=== PATIENT | male | born 1960 | race Hispanic/Latino ===

== ENCOUNTER 2021-09-17 11:53 | Inpatient (IN) | payer BC, OTHER ==
[~2021-09-17] VITALS: Ht 182.9 cm; Wt 79.4 kg
[~2021-09-17 11:53] MED LIST: KEFLEX500 MG PO; LORTAB 7.5-5001 EACH PO; OMEPRAZOLE40 MG PO; ULTRAM 50MG50 MG PO; Z.0.BENICAR20 MG PO
[2021-09-17] MEDS ORDERED: ONDANSETRON HCL INJ 2MG/ML 2ML 2 MG/ML VIAL IV STA (11:59)
[2021-09-17] MEDS ORDERED: Morphine 4mg Syringe 4 MG/ML INJ IV ONE (12:00)
[2021-09-17] MEDS ORDERED: SODIUM CHLORIDE 0.9% 1000ML 1,000 ML IV ONE (12:00)
[2021-09-17 12:16] LABS: BASOPHILS % 0.2 % (0.0-1.0); EOSINOPHILS % 0.1 % (0.0-6.0); HEMATOCRIT 43.8 % (38.2-49.6); HEMOGLOBIN 14.5 g/dL (14.0-18.0); LYMPHOCYTES # (AUTO) 0.5 (1.0-3.2); LYMPHOCYTES % 4.3 % (18.0-39.1); MEAN CORPUSCULAR HEMOGLOBIN 31.2 pg (28-32); MEAN CORPUSCULAR HGB CONC 33.1 g/dL (31-35); MEAN CORPUSCULAR VOLUME 94.2 fL (81-99); MONOCYTES # (AUTO) 0.5 (0.2-0.8); MONOCYTES % 3.8 % (4.4-11.3); NEUTROPHILS # (AUTO) 10.7 (2.1-6.9); NEUTROPHILS % 91.3 % (38.7-80.0); PLATELET COUNT 221 x10e3/uL (140-360); RED BLOOD COUNT 4.65 x10e6/uL (4.3-5.7); RED CELL DISTRIBUTION WIDTH 12.6 % (11.7-14.4)
[2021-09-17] MEDS ORDERED: LIDOCAINE HCL 2% LOCAL INJ 5 ML SDV VIAL INJ ONE (12:18)
[2021-09-17] MEDS ORDERED: SUCCINYLCHOLINE CHLORIDE 20 MG/ML 10ML VIAL ONE (12:18)
[2021-09-17] MEDS ORDERED: GLYCOPYRROLATE INJ 0.2 MG/ML VIAL ONE (12:18)
[2021-09-17] MEDS ORDERED: ONDANSETRON HCL INJ 2MG/ML 2ML 2 MG/ML VIAL ONE (12:18)
[2021-09-17] MEDS ORDERED: ROCURONIUM BROMIDE 10 MG/ML 5ML VIAL IV ONE (12:18)
[2021-09-17] MEDS ORDERED: SEVOFLURANE INHAL SOLN 250 ML PEN BTL ONE (12:18)
[2021-09-17] MEDS ORDERED: POVIDONE IODINE 0.05% 0.05 % ML PO ONE (12:18)
[2021-09-17] MEDS ORDERED: NEOSTIGMINE 1 MG/ML 10ML VIAL ONE (12:18)
[2021-09-17] MEDS ORDERED: KETOROLAC TROMETHAMINE 30 MG/ML VIAL ONE (12:18)
[2021-09-17] MEDS ORDERED: PROPOFOL IV EMULSION 10 MG/ML 20 ML VIAL ONE (12:18)
[2021-09-17 12:36] LABS: ALBUMIN 4.6 g/dL (3.5-5.0); ALBUMIN/GLOBULIN RATIO 1.4 (0.8-2.0); ANION GAP 16.1 mmol/L (8-16); CREATININE, SERUM 1.24 mg/dL (0.72-1.25); POTASSIUM 4.1 mmol/L (3.5-5.1)
[2021-09-17] MEDS ORDERED: FENTANYL CITRATE/PF 100MCG/2 ML INJ ONE (12:57)
[2021-09-17] MEDS ORDERED: MIDAZOLAM HCL 2 MG/2 ML VIAL ONE (12:57)
[2021-09-17 13:16] LABS: CLARITY,URINE CLEAR (CLEAR); COLOR,URINE YELLOW (YELLOW); KETONES,URINE TRACE (NEGATIVE); LEUKOCYTE ESTERASE ,URINE NEGATIVE (NEGATIVE); NITRITE,URINE NEGATIVE (NEGATIVE); PROTEIN,URINE DIPSTICK NEGATIVE (NEGATIVE); URINE UROBILINOGEN 0.2 mg/dL (0.2 - 1)
[2021-09-17 13:18] LABS: BACTERIA,URINE FEW /HPF; EPITHELIAL CELLS,URINE FEW /LPF; RBC,URINE 0-5 /HPF (0-5)
[2021-09-17 13:19] LABS: MUCUS,URINE MODERATE (RARE)
[2021-09-17] MEDS ORDERED: SODIUM CHLORIDE 0.9% 50ML 50 ML ONE (13:19)
[2021-09-17] MEDS ORDERED: IOPAMIDOL 370 MG/ML 200 ML INFUS..BTL INJ ONE (13:19)
[2021-09-17] MEDS ORDERED: PIPERACILLIN/TAZOBACTAM 3.375 GM in SODIUM CHLORIDE 0.9% 50ML 50 ML IV ONE (14:30)
[2021-09-17] MEDS ORDERED: Morphine 4mg Syringe 4 MG/ML INJ IV PRN (14:30)
[2021-09-17] MEDS ORDERED: SODIUM CHLORIDE 0.9% 1000ML 1,000 ML IV SCH (14:30)
[2021-09-17] MEDS ORDERED: ONDANSETRON HCL INJ 2MG/ML 2ML 2 MG/ML VIAL IV PRN (14:30)
[2021-09-17 15:07] VITALS: BP 115/83
[2021-09-17] MEDS ORDERED: PRAVASTATIN SOD20 MG PO (15:47)
[2021-09-17] MEDS ORDERED: HYDROCHLOROTHIA25 MG PO (15:47)
[2021-09-17] MEDS ORDERED: SERTRALINE HCL50 MG PO (15:47)
[2021-09-17 16:59] VITALS: BP 115/83
[2021-09-17 18:32] VITALS: BP 105/70
[2021-09-17] MEDS: Cefoxitin 1 GM in SODIUM CHLORIDE 0.9% 50ML 50 ML IV SCH (18:34)
[2021-09-17] MEDS ORDERED: LORAZEPAM INJ 2 MG/ML VIAL IV PRN (20:00)
[2021-09-17] MEDS ORDERED: MULTIVITAMINS- 12 INJECTION 10 ML, FOLIC ACID MDV 1 MG, THIAMINE HCL INJ 100 MG in SODI... IV ONE (20:00)
[2021-09-17] MEDS: PRAVASTATIN 20 MG TAB PO SCH (21:00)
[2021-09-17 21:33] VITALS: BP 144/78
[2021-09-17] MEDS ORDERED: THIAMINE HCL INJ 100 MG/ML 2ML VIAL ONE (21:36)
[2021-09-17] MEDS ORDERED: SODIUM CHLORIDE 0.9% 1000ML 1,000 ML ONE (21:52)
[2021-09-18] VITALS (9 sets, daily range): BP systolic 101–188; BP diastolic 64–94
[2021-09-18] MEDS: Cefoxitin 1 GM in SODIUM CHLORIDE 0.9% 50ML 50 ML IV SCH ×6 (05:25→23:50)
[2021-09-18 06:17] LABS: BASOPHILS % 0.3 % (0.0-1.0); EOSINOPHILS # (AUTO) 0.1 (0.0-0.4); EOSINOPHILS % 0.7 % (0.0-6.0); HEMATOCRIT 36.1 % (38.2-49.6); HEMOGLOBIN 11.7 g/dL (14.0-18.0); LYMPHOCYTES # (AUTO) 0.7 (1.0-3.2); LYMPHOCYTES % 9.3 % (18.0-39.1); MEAN CORPUSCULAR HEMOGLOBIN 31.5 pg (28-32); MEAN CORPUSCULAR HGB CONC 32.4 g/dL (31-35); MEAN CORPUSCULAR VOLUME 97.3 fL (81-99); MONOCYTES # (AUTO) 0.3 (0.2-0.8); MONOCYTES % 4.4 % (4.4-11.3); NEUTROPHILS # (AUTO) 6.1 (2.1-6.9); NEUTROPHILS % 84.9 % (38.7-80.0); PLATELET COUNT 165 x10e3/uL (140-360); RED BLOOD COUNT 3.71 x10e6/uL (4.3-5.7); RED CELL DISTRIBUTION WIDTH 12.6 % (11.7-14.4)
[2021-09-18] MEDS: PANTOPRAZOLE SOD 40 MG TABEC PO SCH (09:51)
[2021-09-18] MEDS: HYDROCHLOROTHIAZIDE 25 MG TAB PO SCH (09:51)
[2021-09-18] MEDS: SERTRALINE HCL 50 MG TAB PO SCH (09:51)
[2021-09-18] MEDS: PRAVASTATIN 20 MG TAB PO SCH (21:47)
[2021-09-19 04:41] VITALS: BP 139/89
[2021-09-19] MEDS: Cefoxitin 1 GM in SODIUM CHLORIDE 0.9% 50ML 50 ML IV SCH ×2 (05:31→12:19)
[2021-09-19 06:59] LABS: BASOPHILS % 0.3 % (0.0-1.0); EOSINOPHILS # (AUTO) 0.1 (0.0-0.4); EOSINOPHILS % 1.7 % (0.0-6.0); HEMATOCRIT 37.7 % (38.2-49.6); HEMOGLOBIN 12.8 g/dL (14.0-18.0); LYMPHOCYTES # (AUTO) 0.6 (1.0-3.2); LYMPHOCYTES % 8.3 % (18.0-39.1); MEAN CORPUSCULAR HEMOGLOBIN 31.5 pg (28-32); MEAN CORPUSCULAR VOLUME 92.9 fL (81-99); MONOCYTES # (AUTO) 0.5 (0.2-0.8); MONOCYTES % 6.8 % (4.4-11.3); NEUTROPHILS # (AUTO) 5.8 (2.1-6.9); NEUTROPHILS % 82.5 % (38.7-80.0); PLATELET COUNT 184 x10e3/uL (140-360); RED BLOOD COUNT 4.06 x10e6/uL (4.3-5.7); RED CELL DISTRIBUTION WIDTH 12.2 % (11.7-14.4)
[2021-09-19 07:48] LABS: ALBUMIN 3.2 g/dL (3.5-5.0); ALBUMIN/GLOBULIN RATIO 0.9 (0.8-2.0); ANION GAP 12.1 mmol/L (8-16); CALCIUM 8.7 mg/dL (8.4-10.2); CREATININE, SERUM 1.28 mg/dL (0.72-1.25); POTASSIUM 4.1 mmol/L (3.5-5.1)
[2021-09-19 07:51] VITALS: BP 143/92
[2021-09-19] MEDS: PANTOPRAZOLE SOD 40 MG TABEC PO SCH (07:59)
[2021-09-19] MEDS: HYDROCHLOROTHIAZIDE 25 MG TAB PO SCH (07:59)
[2021-09-19] MEDS: SERTRALINE HCL 50 MG TAB PO SCH (08:00)
[2021-09-19 11:17] VITALS: BP 118/81
[2021-09-19] MEDS ORDERED: AUGMENTIN 875-1 EACH PO (13:56)
[2021-09-19] MEDS ORDERED: ULTRAM 50MG50 MG PO (13:56)
== END 2021-09-19 14:22 | disposition home or self-care (01) | DRG 340 ==
LOC: ER 12:06 → ERHOLD 13:51 → MED/SURG3 14:59
PROVIDERS: ADMIT Internal Medicine; ATTEND Internal Medicine
PROC: 0DTJ4ZZ Resection of Appendix, Percutaneous Endoscopic Approach (ICD-10-PCS; principal; 2021-09-17 16:32)
DX: K35.32 Acute appendicitis with perforation, localized peritonitis, and gangrene, without abscess (principal); I10 Essential (primary) hypertension; K21.9 Gastro-esophageal reflux disease without esophagitis; E78.00 Pure hypercholesterolemia, unspecified; F32.A Depression, unspecified; Z90.49 Acquired absence of other specified parts of digestive tract; F10.10 Alcohol abuse, uncomplicated; Z20.822 Contact with and (suspected) exposure to COVID-19
CPT/HCPCS: 36415; 74177; 80053; 81001; 83690; 85025; 88304; 93005; 99284; J0330; J0694; J1885; J2001; J2250; J2270; J2405; J2710; J3010; J3411; J7030; Q9967; U0002